=== PATIENT | male | born 1955 | race Caucasian/White ===

== ENCOUNTER 2023-12-04 10:01 | Emergency (ER) | payer OTHER ==
[~2023-12-04] VITALS: Ht 180.3 cm; Wt 93.2 kg
[2023-12-04] MEDS: dexamethasone sod phosphate 10mg/ml inj PO STA (12:21)
[2023-12-04] MEDS: ipratropium/albuterol 3ml nebule NEB ONE (13:44)
[2023-12-04 13:46] VITALS: PULSE 92; RESP 16; O2SAT 93
[2023-12-04 13:50] VITALS: PULSE 91; RESP 18; O2SAT 97
[2023-12-04] MEDS ORDERED: CIPR-212 PO (13:57)
[2023-12-04] MEDS ORDERED: ALBU8HFA INH (13:57)
[2023-12-04 14:01] VITALS: BP 156/91; PULSE 97; RESP 16; TEMP 98.2; O2SAT 92
[2023-12-04] MEDS: CefTRIAXone 1000mg IM Kit (w/lidocaine diluent) IM ONE (14:07)
[2023-12-04] MEDS ORDERED: [UNRECOGNIZED DRUG - CODE] PO (14:48)
== END 2023-12-04 14:55 | disposition home or self-care (01) ==
LOC: ER 10:02
DX: J18.9 Pneumonia, unspecified organism (principal); Z88.2 Allergy status to sulfonamides; Z79.2 Long term (current) use of antibiotics
CPT/HCPCS: 71045; 94640; 96372; 99283; J0696; J1100; 94760